=== PATIENT | male | born 1995 | race Caucasian/White ===

== ENCOUNTER 2019-02-23 13:51 | Emergency (ER) | payer SELFPAY ==
[~2019-02-23 13:51] MED LIST: NORCO 325 MG-51 TAB PO; PREDNISONE20 MG PO
[2019-02-23 15:00] VITALS: BP 126/62
== END 2019-02-23 14:44 | disposition home or self-care (01) ==
LOC: ED 13:51
DX: S91.111A Laceration without foreign body of right great toe without damage to nail, initial encounter (principal); W22.09XA Striking against other stationary object, initial encounter; Y92.009 Unspecified place in unspecified non-institutional (private) residence as the place of occurrence of the external cause